=== PATIENT | female | born 1995 | race Caucasian/White ===

== ENCOUNTER 2023-02-26 23:02 | Emergency (ER) | payer MEDICAID ==
[~2023-02-26] VITALS: Ht 167.6 cm; Wt 84.8 kg
[2023-02-26 23:05] VITALS: BP_SYST 131; PULSE 80; RESP 14; TEMP 97; O2SAT 99
[2023-02-26] MEDS ORDERED: HYDROcodone/ACETAMIN 7.5-325 MG TAB PO ONE (23:30)
[2023-02-26 23:48] LABS: BILIRUBIN,URINE NEGATIVE (NEGATIVE); BLOOD, URINE NEGATIVE (NEGATIVE); COLOR,URINE YELLOW (YELLOW); GLUCOSE,URINE NEGATIVE (NEGATIVE); KETONES,URINE NEGATIVE (NEGATIVE); LEUKOCYTE ESTERASE ,URINE 1+ (NEGATIVE); NITRITE, URINE NEGATIVE (NEGATIVE); PH,URINE 6.5 (5.0-8.0); PROTEIN URINE NEGATIVE (NEGATIVE); UROBILINOGEN,URINE 0.2 (0.2-1.0)
[2023-02-27 00:09] LABS: CLARITY/URINE SLIGHTLY CLOUDY (CLEAR)
[2023-02-27 00:33] LABS: BACTERIA,URINE FEW /HPF (None Seen); RBC,URINE 0-3 /HPF (0-3)
[2023-02-27] MEDS ORDERED: NITROFURANTOIN MONOHYD/M-CRYST 100 MG CAPSULE (MacroBID) PO ONE (03:00)
[2023-02-27] MEDS ORDERED: NITR-85 PO (03:02)
[2023-02-27 03:10] VITALS: BP_SYST 122; PULSE 82; RESP 14; TEMP 98; O2SAT 99
== END 2023-02-27 03:10 | disposition home or self-care (01) ==
LOC: SED 23:02
DX: N39.0 Urinary tract infection, site not specified (principal); R10.9 Unspecified abdominal pain; Z79.899 Other long term (current) drug therapy
CPT/HCPCS: 76376; 81000; 87086; 99284